=== PATIENT | female | born 2000 | race American Indian/Alaskan Native ===

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

== ENCOUNTER 2022-01-15 13:10 | Emergency (ER) | payer SELFPAY ==
[2022-01-15 13:26] VITALS: BP 115/55
--- NOTE | 2022-01-15 13:53 | XRay Report ---
CHEST 2 VIEWS INDICATION / CLINICAL INFORMATION: CP. COMPARISON: 09/16/2020 FINDINGS: SUPPORT DEVICES: None. HEART / MEDIASTINUM: No significant abnormality. LUNGS / PLEURA: No significant pulmonary or pleural abnormality. No pneumothorax. ADDITIONAL FINDINGS: No significant additional findings. IMPRESSION: 1. No acute findings. Signer Name: Judah Merrill MD Signed: 01/15/2022 1:48 PM Workstation Name: [id number]
[2022-01-15] MEDS ORDERED: predniSONE 20 MG TAB PO ONE (13:55)
--- NOTE | 2022-01-15 13:55 | Emergency Department Report ---
Minor Respiratory - HPI Chief Complaint: Chest Pain Stated Complaint: CHEST PAIN Time Seen by Provider: 01/15/22 13:44 Duration: Today Pain Location: Chest Severity: mild Minor Respiratory: Yes Able to Tolerate Fluids, Yes Chest Pain, No Rhinorrhea, No Sore Throat, No Ear Pain, No Cough, No Sick Contacts, No Hemoptysis, No Shortness of Breath, No Fever Other History: 21 YO COMES TO ER P DRINKING, SMOKING CIG/THC AND DEVELOPING CP. SHE HAD THIS HAPPEN IN THE PAST SHE SAID. OTHERWISE HEALTHY PT. VSS. NO COUGH. NO FEVER. NO CHILLS. AMBULATORY AND NAD ED Review of Systems ROS: Stated complaint: CHEST PAIN Other details as noted in HPI Comment: All other systems reviewed and negative ED Past Medical Hx - Past Medical History Previous Medical History?: No - Surgical History Past Surgical History?: No - Family History Family history: no significant - Social History Smoking Status: Current Every Day Smoker Substance Use Type: Alcohol, Marijuana - Medications Home Medications: Home Medications Medication Instructions Recorded Confirmed Last Taken Type predniSONE [Deltasone] 20 mg PO DAILY #5 tablet 01/15/22 Unknown Rx Minor Respiratory Exam - Exam General: Vital signs noted. No distress. Alert and acting appropriately. HEENT: Yes Moist Mucous Membranes, No Pharyngeal Erythema, No Pharyngeal Exudates, No Rhinorrhea, No Conjuctival Injection, No Frontal Tenderness, No Maxillary Tenderness Ear: Neither TM Bulge, Neither TM Erythema, Neither EAC Pain, Neither EAC Discharge Neck: Yes Supple, No Adenopathy Lungs: Yes Good Air Exchange, No Wheezes, No Ronchi, No Stridor, No Cough, No Labored Respirations, No Retractions, No Use of Accessory Muscles, No Other Abnormal Lung Sounds Heart: Yes Regular, No Murmur Abdomen: Yes Normal Bowel Sounds, No Tenderness, No Peritoneal Signs Skin: No Rash, No Edema Neurologic: Alert and oriented, no deficits. Musculoskeletal: Unremarkable. ED Course Vital Signs 01/15/22 13:23 Temperature 98.1 F Pulse Rate 68 Blood Pressure 115/55 [Right] O2 Sat by Pulse 98 Oximetry ED Medical Decision Making - EKG Data EKG shows normal: sinus rhythm Rate: normal - EKG Data When compared to previous EKG there are: no significant change Interpretation: no acute changes - Radiology Data Radiology results: report reviewed, image reviewed NAP - Medical Decision Making BY THE TIME PT WAS SEEN IN FT SHE HAD NO PAIN. SHE STATES SHE HAD BEEN SMOKING CIG AND WEED AND DRINKING WHEN SHE GOT A FULLNESS IN HER CHEST IT SCARED HER SO SHE CAME TO ER WE HAD LONG DISCUSSION ABOUT DRUGS/ETOH NO FEVER NO CHILLS NO SPUTUM NO TACHYCARDIA NO HYPOTENSION EKG NORMAL CHEST XRAY NORMAL PTS MOTHER ON PHONE DURING EXAM Vital Signs 01/15/22 13:23 Temperature 98.1 F Pulse Rate 68 Blood Pressure 115/55 [Right] O2 Sat by Pulse 98 Oximetry DC HOME WITH DC PLAN OF CARE INCLUDING DIET, MEDS, ACTIVITY AND FOLLOW UP. SHE VERBALIZES UNDERSTANDING OF PLAN OF CARE. - Differential Diagnosis CP- URI/ANXIETY/PLEURISY Critical care attestation.: If time is entered above; I have spent that time in minutes in the direct care of this critically ill patient, excluding procedure time. ED Disposition Clinical Impression: Atypical chest pain Disposition: 01 HOME / SELF CARE / HOMELESS Is pt being admited?: No Does the pt Need Aspirin: No Condition: Stable Instructions: Nonspecific Chest Pain, Adult Additional Instructions: MED ORDERED TODAY NO MARIJUANA/ALCOHOL/CIG SMOKING FOLLOW UP WITH PCP REFERRAL BELOW EKG AND CHEST XRAY ARE NORMAL TODAY Prescriptions: predniSONE [Deltasone] 20 mg PO DAILY #5 tablet Referrals: CHITRA SCHMITZ MD [Primary Care Provider] - 3-5 Days Forms: Work/School Release Form(ED) Time of Disposition: 13:58
--- NOTE | 2022-01-16 22:34 | Electrocardiograph Report ---
[facility] Test Date: 2022-01-15 Test Time: 13:14:36 Pat Name: KAUR PAGAN Department: Room: Gender: F [employer] Developer: ELIANE : 2000 Requested By: NIA ARENAS Order Number: [id number] Reading MD: Vida Luz Measurements Intervals Newell Rate: 69 P: 12 MT: 172 QRS: 58 QRSD: 68 T: 40 QT: 378 QTc: 404 Interpretive Statements Sinus rhythm No previous ECG available for comparison Electronically Signed On 01-16-2022 22:34:22 EDT by Vida Luz
== END 2022-01-15 14:26 | disposition home or self-care (01) ==
LOC: ED 13:10
DX: R07.89 Other chest pain (principal); F17.200 Nicotine dependence, unspecified, uncomplicated; F12.90 Cannabis use, unspecified, uncomplicated; Z72.89 Other problems related to lifestyle
CPT/HCPCS: 71046; 93005; 99283